=== PATIENT | male | born 1960 | race Two or more races ===

== ENCOUNTER 2017-01-14 23:34 | Emergency (ER) | payer SELFPAY ==
[~2017-01-14] VITALS: Ht 177.8 cm; Wt 2.6 kg
[2017-01-15 00:17] LABS: Basophils # (auto) 0 uL; Basophils % (auto) 0.4 % (0.0-2.0); Eosinophils # (auto) 0.1 uL; Eosinophils % (auto) 1.5 % (0.0-7.0); Hematocrit 44.6 % (41.0-53.0); Hemoglobin 15.4 g/dL (13.5-17.5); Lymphocytes # (auto) 3.1 uL; Lymphocytes % (auto) 35.6 % (10.0-50.0); Mean Corpuscular Hemoglobin 33.1 pg (28.0-32.0); Mean Corpuscular Hgb Conc. 34.5 g/dL (32.0-36.0); Mean Corpuscular Volume 95.8 fL (80.0-100.0); Mean Platelet Volume 7.6 fL (6.9-10.8); Monocytes # (auto) 0.8 uL; Monocytes % (auto) 8.8 % (0.0-12.0); Neutrophils # (auto) 4.6 uL; Neutrophils % (auto) 53.7 % (37.0-80.0); Nucleated Red Blood Cells % 0.1 %; Platelet Count (auto) 178 10^3/uL (140-450); Red Cell Distribution Width 13.5 % (11.8-14.3); White Blood Cell 8.7 10^3/uL (4.4-10.8)
[2017-01-15] MEDS ORDERED: ONDANSETRON HCL 4 MG/2 ML VIAL IV ONE (00:30)
[2017-01-15] MEDS ORDERED: KETOROLAC TROMETH 30 MG/ML 1ML VIAL IV ONE (00:30)
[2017-01-15] MEDS ORDERED: HYDROmorphone HCL 2 MG/ML VL IV ONE (00:30)
[2017-01-15 00:41] LABS: Albumin 3.9 g/dL (3.4-5.0); BUN/Creatinine Ratio 13.5; Calcium 8.9 mg/dL (8.5-10.1); Potassium 4.1 mmol/L (3.5-5.1)
[2017-01-15 00:44] LABS: Bilirubin, Total 0.3 mg/dL (0.2-1.0); Total Protein 7.9 g/dL (6.4-8.2)
[2017-01-15 00:50] LABS: Magnesium 2.5 mg/dL (1.6-2.6)
[2017-01-15 00:52] LABS: INR 1.04 (0.9-1.15); Partial Thromboplastin Time 27.9 sec (22.64-33.71); Prothrombin Time 11.3 sec (9.37-12.3)
[2017-01-15 01:06] LABS: Urine RBC None Seen /hpf (0 - 3)
[2017-01-15 01:21] LABS: Urine Bilirubin Negative (Negative); Urine Blood Negative /uL (Negative); Urine Color Yellow (Yellow); Urine Glucose Normal (Normal); Urine Ketone Negative (Negative); Urine Mucus FEW (None Seen); Urine Nitrite Negative (Negative); Urine Urobilinogen Normal (Negative)
[2017-01-15 02:00] LABS: B-Type Natriuretic Peptide 19.7 pg/mL (0-100); Temperature: 21.3 C (20.0-25.0)
[2017-01-15 04:57] VITALS: BP 150/89
== END 2017-01-15 04:59 | disposition home or self-care (01) ==
LOC: ER 23:40
DX: R10.12 Left upper quadrant pain (principal); G89.29 Other chronic pain; M54.2 Cervicalgia
CPT/HCPCS: 36415; 74176; 80053; 80307; 80320; 81001; 82150; 83690; 83735; 83880; 84484; 85025; 85610; 85730; 96374; 96375; 99285; J1170; J1885; J2405; J7030

== ENCOUNTER 2017-08-29 08:30 | Emergency (ER) | payer BC, OTHER ==
[~2017-08-29] VITALS: Ht 170.2 cm; Wt 108.4 kg
[2017-08-29] MEDS ORDERED: cloNIDine HCL 0.1 MG TAB PO ONE (09:00)
[2017-08-29 09:13] LABS: Basophils # (auto) 0.1 uL; Basophils % (auto) 0.9 % (0.0-2.0); Eosinophils # (auto) 0 uL; Eosinophils % (auto) 0.2 % (0.0-7.0); Hematocrit 45.3 % (41.0-53.0); Hemoglobin 15.4 g/dL (13.5-17.5); Lymphocytes # (auto) 2.3 uL; Mean Corpuscular Hemoglobin 32.1 pg (28.0-32.0); Mean Corpuscular Hgb Conc. 34.1 g/dL (32.0-36.0); Mean Corpuscular Volume 94.4 fL (80.0-100.0); Neutrophils # (auto) 7.9 uL; Neutrophils % (auto) 69.9 % (37.0-80.0); Platelet Count (auto) 168 10^3/uL (140-450); Red Cell Distribution Width 13.5 % (11.8-14.3); White Blood Cell 11.3 10^3/uL (4.4-10.8)
[2017-08-29 09:33] LABS: Albumin 4.1 g/dL (3.4-5.0); BUN/Creatinine Ratio 18.2; Calcium 8.8 mg/dL (8.5-10.1); Potassium 4.2 mmol/L (3.5-5.1); Total Protein 8.2 g/dL (6.4-8.2)
[2017-08-29] MEDS ORDERED: cefTRIAXone 1GM/10ml IVPUSH 10 ML IV ONE (12:15)
[2017-08-29] MEDS ORDERED: MORPHINE SULFATE 4 MG/ML SYR/VIAL IV ONE (12:45)
[2017-08-29] MEDS ORDERED: PROMETHAZINE HCL 25 MG/ML 1ML IV ONE (12:45)
[2017-08-29] MEDS ORDERED: LABETALOL HCL 5 MG/ML ML 20ML VIAL IV ONE (15:45)
[2017-08-29 16:54] VITALS: BP 153/113
== END 2017-08-29 17:06 | disposition home or self-care (01) ==
LOC: ER 08:37
DX: S61.011A Laceration without foreign body of right thumb without damage to nail, initial encounter (principal); I10 Essential (primary) hypertension; R42 Dizziness and giddiness; V43.92XA Unspecified car occupant injured in collision with other type car in traffic accident, initial encounter; Y93.89 Activity, other specified; Y92.89 Other specified places as the place of occurrence of the external cause; Y99.8 Other external cause status
CPT/HCPCS: 36415; 70450; 70486; 71101; 72040; 73030; 80053; 85025; 93005; 96374; 96375; 99285; J2270; J2550

== ENCOUNTER 2018-09-18 08:10 | Emergency (ER) | payer BC, MEDICAID ==
[~2018-09-18] VITALS: Ht 167.6 cm; Wt 108.4 kg
[2018-09-18 08:37] VITALS: BP 146/83
[2018-09-18] MEDS ORDERED: KETOROLAC TROMETH 60MG/2ML VIAL IM ONE (09:15)
== END 2018-09-18 09:36 | disposition home or self-care (01) ==
LOC: ER 08:21
DX: S20.211A Contusion of right front wall of thorax, initial encounter (principal); K76.0 Fatty (change of) liver, not elsewhere classified; I10 Essential (primary) hypertension; F41.9 Anxiety disorder, unspecified; W22.8XXA Striking against or struck by other objects, initial encounter; Y93.E9 Activity, other interior property and clothing maintenance; Y92.098 Other place in other non-institutional residence as the place of occurrence of the external cause; Y99.8 Other external cause status
CPT/HCPCS: 71101; 74176; 93005; 96372; 99284; J1885

== ENCOUNTER 2018-12-28 08:45 | Emergency (ER) | payer MEDICAID ==
[~2018-12-28] VITALS: Ht 167.6 cm; Wt 104.3 kg
[2018-12-28] MEDS ORDERED: methylPREDNISolone SOD SUCC 125 MG/2 ML VL IM ONE (09:45)
[2018-12-28 11:20] VITALS: BP 119/79
[2018-12-28] MEDS ORDERED: cefTRIAXone SOD 1,000 MG VL IM ONE (12:15)
== END 2018-12-28 12:44 | disposition home or self-care (01) ==
LOC: ER 08:46
DX: H70.91 Unspecified mastoiditis, right ear (principal); H66.91 Otitis media, unspecified, right ear; I10 Essential (primary) hypertension; F17.210 Nicotine dependence, cigarettes, uncomplicated
CPT/HCPCS: 70486; 96372; 99284; J0696; J2930

== ENCOUNTER 2019-05-27 15:36 | Emergency (ER) | payer MEDICAID | END 2019-05-27 18:02 | disposition home or self-care (01) | LOC: ER 15:36 | DX: H66.91 Otitis media, unspecified, right ear (principal); H61.21 Impacted cerumen, right ear | CPT/HCPCS: 69209 ==

== ENCOUNTER 2023-03-27 14:47 | Emergency (ER) | payer MEDICAID ==
[~2023-03-27] VITALS: Ht 167.6 cm; Wt 110.9 kg
[~2023-03-27 14:47] MED LIST: ACET1CAP14 PO; CYCL-839 PO
[2023-03-27] MEDS ORDERED: HYDROcodone-ACET 10/325MG TAB PO ONE (15:30)
[2023-03-27 16:01] LABS: Basophils # (auto) 0.1 10 ^3/uL (0-0.2); Basophils % (auto) 0.9 % (0.0-2.0); Eosinophils # (auto) 0.1 10 ^3/uL (0-0.8); Eosinophils % (auto) 1.3 % (0.0-7.0); Hematocrit 46.8 % (41.0-53.0); Hemoglobin 16.2 g/dL (13.5-17.5); Lymphocytes # (auto) 2.9 10 ^3/uL (0.4-5.4); Lymphocytes % (auto) 29.3 % (10.0-50.0); Mean Corpuscular Hemoglobin 33.8 pg (28.0-32.0); Mean Corpuscular Hgb Conc. 34.7 g/dL (32.0-36.0); Mean Corpuscular Volume 97.5 fL (80.0-100.0); Monocytes # (auto) 0.9 10 ^3/uL (0-1.3); Monocytes % (auto) 9.3 % (0.0-12.0); Neutrophils # (auto) 5.8 10 ^3/uL (1.6-8.6); Neutrophils % (auto) 59.2 % (37.0-80.0); Nucleated Red Blood Cells % 0.1 %; Red Cell Distribution Width 13.3 % (11.8-14.3); White Blood Cell 9.7 10^3/uL (4.4-10.8)
[2023-03-27 16:20] LABS: Alanine Aminotransferase 27 U/L (7-40); Albumin 4.5 g/dL (3.2-4.8); Alkaline Phosphatase 84 U/L (46-116); Anion Gap 6 (5-15); Aspartate Aminotransferase 24 U/L (13-40); Blood Urea Nitrogen 13 mg/dL (9-23); Calcium 9.7 mg/dL (8.5-10.1); Carbon Dioxide 28 mmol/L (20-30); Chloride 106 mmol/L (98-107); Glucose 93 mg/dL (74-106); Potassium 4.3 mmol/L (3.5-5.1); Sodium 140 mmol/L (136-145)
[2023-03-27 16:21] LABS: Bilirubin, Total 0.5 mg/dL (0.2-1.0); Total Protein 7.5 g/dL (5.7-8.2)
[2023-03-27 18:49] LABS: Urine Bacteria NONE SEEN /hpf (None Seen); Urine Blood Negative /uL (Negative); Urine Clarity Clear (Clear); Urine Color Yellow (Yellow); Urine Mucus FEW (None Seen); Urine Protein, UAD TRACE (Negative); Urine Specific Gravity 1.031 (1.001-1.035); Urine WBC 3 /hpf (0 - 3)
[2023-03-27] MEDS ORDERED: IBUP-1455 PO ×3 (19:43→20:17)
[2023-03-27] MEDS ORDERED: TAMS-35 PO ×3 (19:43→20:17)
[2023-03-27] MEDS ORDERED: TRAM50TA2 PO ×3 (19:43→20:17)
[2023-03-27] MEDS ORDERED: KETOROLAC TROMETH 60MG/2ML VIAL IM ONE (19:45)
[2023-03-27 20:15] VITALS: BP 139/81; TEMP 97.7
[2023-03-27 20:25] VITALS: PULSE 63; RESP 18; O2SAT 94
== END 2023-03-27 20:30 | disposition home or self-care (01) ==
LOC: ER 14:47
DX: N40.0 Benign prostatic hyperplasia without lower urinary tract symptoms (principal); M47.816 Spondylosis without myelopathy or radiculopathy, lumbar region; I10 Essential (primary) hypertension; F17.210 Nicotine dependence, cigarettes, uncomplicated; X50.1XXA Overexertion from prolonged static or awkward postures, initial encounter; Y93.89 Activity, other specified; Y92.89 Other specified places as the place of occurrence of the external cause; Y99.8 Other external cause status
CPT/HCPCS: 36415; 74176; 76870; 80053; 81001; 85025; 96372; 99285; J1885